=== PATIENT | male | born 1985 | race Caucasian/White ===

== ENCOUNTER 2016-11-26 01:28 | Emergency (ER) | payer MEDICAID ==
[~2016-11-26 01:28] MED LIST: BUSP10TA PO; CIPR0.3S LEFT EAR; HYDR-3516 PO; OLAN15TA PO; OMEP40CA2 PO; PROM25TA5 PO; TAMS0.4C4 PO; TRIH2 PO; ZOFR4TAB PO; [UNRECOGNIZED DRUG - OTHER] PO
[2016-11-26 01:31] VITALS: BP 125/84; PULSE 78; RESP 18; TEMP 97.9; O2SAT 95
[2016-11-26] MEDS ORDERED: SODIUM CHLOR 0.9% 1000 ML INJ 1,000 ML IV ONE (02:00)
[2016-11-26] MEDS ORDERED: ONDANSETRON HCL 4 MG/2 ML VIAL IV ONE (02:00)
--- NOTE | 2016-11-26 02:04 | PD ---
HPI Chief Complaint: Abdominal Pain Time Seen by Provider: 01:52 Travel History International Travel<30 days: No Contact w/Intl Traveler<30days: No Traveled to known affect area: No History of Present Illness HPI The patient is 31 year old male who presents to the [facility] emergency department with a history of abdominal pain in the left upper quadrant of the abdomen associated with bloating that began this evening. He reports that he had nausea and vomiting 1. He reports that he's had one loose stool that is dark brown in color. He denies having any blood or mucus in his stool. He reports that the symptoms are similar to prior episodes of his gastritis. He reports that he recently established with a new primary care doctor that he cannot recall the name of. He reports that he did not have his omeprazole or Zofran continued. The patient denies taking anything for acid reflux or esophagitis or gastritis at this time. The patient denies any recent fevers, cough, congestion, neck pain, chest pain, shortness of breath, urinary symptoms , or neurologic symptoms. [facility] Past Medical History Narrative Medical The patient's past medical history is significant for schizoaffective disorder, esophagitis, gastritis, asthma, tobacco abuse. 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 ) Diabetes: No Diminished Hearing: No Endocrine: No Gastrointestinal Disorders: No GERD: Yes Genitourinary: No Headaches: No Hepatitis: No Hiatal Hernia: No Heparin Induced Thrombocytopen: No Hypertension: Yes Immune Disorder: No Implanted Vascular Access Dvce: No Kidney Stones: No Musculoskeletal: No Neurologic: No Psychiatric: Yes (BIPOLAR, PTSD, SCHIZOPHRENIA) Reproductive: No Immunizations Current: Yes Migraines: No Myocardial Infarction: No Renal Failure: No Schizophrenia: Yes Seizures: No Sickle Cell Disease: No Sleep Apnea: No Thyroid Disease: No Triglycerides - High: No Ulcer: No Past Surgical History Narrative Surgical The patient's past surgical history is reportedly none. He has undergone endoscopy and colonoscopy previously. Abdominal Surgery: Yes ("TUMOR REMOVED FROM LOWER STOMACH") Appendectomy: No Cardiac Surgery: No Cholecystectomy: No Ear Surgery: No Endocrine Surgery: No Eye Surgery: No Genitourinary Surgery: No Gynecologic Surgery: No Neurologic Surgery: No Oral Surgery: No Pacemaker: No Thoracic Surgery: No Other Surgery: Yes (COLONSCOPY-2014) Social History Alcohol Use: No Tobacco Use: Yes (RARE ) Substance Use: No Allergies-Medications (Allergen,Severity, Reaction): Coded Allergies: Haldol (Verified Allergy, Severe, Anaphylaxis, 11/26/16) Seroquel (Verified Allergy, Severe, Anaphylaxis, 11/26/16) Reported Meds & Prescriptions Reported Meds & Active Scripts Active Omeprazole 40 Mg Cap 40 Mg PO DAILY Zofran (Ondansetron HCl) 4 Mg Tab 4 Mg PO Q6HR PRN Ciprodex Otic Drops (Ciprofloxacin-Dexamethasone Otic Drops) 0.3-0.1% Susp 4 Drop LEFT EAR BID Phenergan (Promethazine HCl) 25 Mg Tab 25 Mg PO Q6H PRN Reported Tamsulosin (Tamsulosin HCl) 0.4 Mg Cap 0.4 Mg PO HS [prephenazine] 8 Mg PO BID Buspirone (Buspirone HCl) 10 Mg Tab 10 Mg PO TID Trihexyphenidyl (Trihexyphenidyl HCl) 2 Mg Tab 2 Mg PO BID Olanzapine 15 Mg Tab 15 Mg PO DAILY Hydrocodone-Acetaminophen 5-325 mg Tab 1 Tab PO Q6H PRN Review of Systems Except as stated in HPI: all other systems reviewed are Neg General / Constitutional: No: Fever Eyes: No: Visual changes HENT: No: Headaches Cardiovascular: No: Chest Pain or Discomfort Respiratory: No: Shortness of Breath Gastrointestinal: Positive: Nausea, Vomiting, Diarrhea, Abdominal Pain, Changes in Bowel Habits, Indigestion, No: Constipation, Loss of Appetite Genitourinary: No: Dysuria Musculoskeletal: No: Pain Skin: No Rash Neurologic: No: Weakness Psychiatric: No: Depression Endocrine: No: Polydipsia Hematologic/Lymphatic: No: Easy Bruising Physical Exam Narrative General: The patient is a well-developed well-nourished male in no acute distress. Head and Neck exam: Head is normocephalic atraumatic. Eyes: EOMI, pupils are equal round and reactive to light. Nose: Midline septum with pink mucous membranes Mouth: Dentition unremarkable. Moist mucus membranes. Posterior oropharynx is not erythematous. No tonsillar hypertrophy. Uvula midline. Airway patent. Neck: No palpable lymphadenopathy. No nuchal rigidity. No thyromegaly. Cardiovascular: Regular rate and rhythm without murmurs, gallops, or rubs. Lungs: Clear to auscultation bilaterally. No wheezes, rhonchi, or rales. Abdomen: Soft, with tenderness on deep palpation of the left upper quadrant of the abdomen, no other tenderness on palpation of the other quadrants of the abdomen. No guarding, rebound, or rigidity. The patient has normal bowel sounds are audible. The patient has no tenderness on palpation of McBurney's point. The patient has a negative Egan sign. Extremities: No clubbing, cyanosis, or edema. No calf tenderness on palpation. Back: No spinous process tenderness to palpation. No costovertebral angle tenderness to palpation. Neurologic Exam: Grossly nonfocal. Skin Exam: No rash noted. Intact skin that is warm and dry. Data Data Last Documented VS Vital Signs Date Time Temp Pulse Resp B/P Pulse Ox O2 Delivery O2 Flow Rate FiO2 11/26/16 01:33 18 11/26/16 01:31 97.9 78 125/84 95 Orders Complete Blood Count With Diff (11/26/16 01:55) Comprehensive Metabolic Panel (11/26/16 01:55) C-Reactive Protein (Crp) (11/26/16 01:55) Lipase (11/26/16 01:55) Urinalysis - C+S If Indicated (11/26/16 01:55) Abdomen, Flat & Upright (11/26/16 01:55) Iv Access Insert/Monitor (11/26/16 01:55) Ecg Monitoring (11/26/16 01:55) Oximetry (11/26/16 01:55) Sodium Chlor 0.9% 1000 Ml Inj (Ns 1000 M (11/26/16 02:00) Ondansetron Inj (Zofran Inj) (11/26/16 02:00) Pantoprazole Inj (Protonix Inj) (11/26/16 03:45) Acetaminophen (Tylenol) (11/26/16 03:45) Labs Laboratory Tests Test 11/26/16 02:10 White Blood Count 11.1 TH/MM3 Red Blood Count 5.29 MIL/MM3 Hemoglobin 15.4 GM/DL Hematocrit 48.4 % Mean Corpuscular Volume 91.5 FL Mean Corpuscular Hemoglobin 29.1 PG Mean Corpuscular Hemoglobin 31.8 % Concent Red Cell Distribution Width 14.2 % Platelet Count 252 TH/MM3 Mean Platelet Volume 8.2 FL Neutrophils (%) (Auto) 48.0 % Lymphocytes (%) (Auto) 40.8 % Monocytes (%) (Auto) 7.4 % Eosinophils (%) (Auto) 3.2 % Basophils (%) (Auto) 0.6 % Neutrophils # (Auto) 5.3 TH/MM3 Lymphocytes # (Auto) 4.5 TH/MM3 Monocytes # (Auto) 0.8 TH/MM3 Eosinophils # (Auto) 0.4 TH/MM3 Basophils # (Auto) 0.1 TH/MM3 CBC Comment DIFF FINAL Differential Comment Urine Color LIGHT-YELLOW Urine Turbidity CLEAR Urine pH 7.5 Urine Specific [place] 1.006 Urine Protein NEG mg/dL Urine Glucose (UA) NEG mg/dL Urine Ketones NEG mg/dL Urine Occult Blood NEG Urine Nitrite NEG Urine Bilirubin NEG Urine Urobilinogen LESS THAN 2.0 MG/DL Urine Leukocyte Esterase NEG Urine WBC LESS THAN 1 /hpf Microscopic Urinalysis Comment CULT NOT INDICATED Sodium Level 141 MEQ/L Potassium Level 4.3 MEQ/L Chloride Level 108 MEQ/L Carbon Dioxide Level 25.5 MEQ/L Anion Gap 8 MEQ/L Blood Urea Nitrogen 11 MG/DL Creatinine 0.95 MG/DL Estimat Glomerular Filtration 92 ML/MIN Rate Random Glucose 83 MG/DL Calcium Level 8.8 MG/DL Total Bilirubin 0.3 MG/DL Aspartate Amino Transf 20 U/L (AST/SGOT) Alanine Aminotransferase 28 U/L (ALT/SGPT) Alkaline Phosphatase 77 U/L C-Reactive Protein LESS THAN 0.29 MG/DL Total Protein 6.9 GM/DL Albumin 3.5 GM/DL Lipase 65 U/L [facility] Medical Decision Making Medical Screen Exam Complete: Yes Emergency Medical Condition: Yes Medical Record Reviewed: Yes Differential Diagnosis Gastritis, versus esophagitis, versus gastroenteritis, versus electrolyte abnormality, versus viral syndrome Narrative Course During the course of the patients emergency department visit, the patients history, examination, and differential diagnosis were reviewed with the patient. The patient had IV access obtained and blood work sent for analysis. The patient's was on a cardiac rehabilitation specialist with oximetry and blood pressure monitoring. The patient was provided normal saline 1 L IV fluid bolus, Zofran 4 mg IV, Protonix 40 mg IV, Tylenol 650 by mouth times 1 for pain. Patients laboratory studies were reviewed and remarkable for a white count of 11.1, hemoglobin 15.4, platelets 252 with a normal differential. CMP is remarkable for chloride of 108, lipase 65, C-reactive protein less than 0.29. Urinalysis is unremarkable. Radiology studies were reviewed and remarkable for an abdominal flat and upright that is unremarkable. I suspect that the patient's recurrence of symptoms is related to being out of the omeprazole that he was previously on. The patient will be discharged home with a prescription for omeprazole and Zofran. The patient is resting comfortably and feels better, is alert and in no distress. The patients results and examination findings were discussed with the patient. The repeat examination is unremarkable and benign. The history, exam, diagnostic testing, and current condition do not suggest any significant pathology to warrant further testing, continued ED treatment, admission, or surgical evaluation at this point. The vital signs have been stable. The patient does not have uncontrollable pain, intractable vomiting, or other significant symptoms. The patient's condition is stable and appropriate for discharge. The patient will pursue further outpatient evaluation with a primary care physician or other designated or consulting physician as indicated in the discharge instructions. The patient expressed understanding and was agreeable with this plan. Diagnosis Primary Impression: Abdominal pain Qualified Code: R10.12 - Left upper quadrant pain Additional Impression: Vomiting and diarrhea Referrals: Primary Care Physician Patient Instructions: Abdominal Pain (ED), Acute Diarrhea (ED), Acute Nausea and Vomiting (ED), General Instructions Med/Other Pt SpecificInfo: Prescription(s) given Scripts Omeprazole 40 Mg Cap40 Mg PO DAILY #30 CAP Ref 0 Prov:Sil Jones MD 11/26/16 Ondansetron (Zofran)4 Mg Tab4 Mg PO Q6HR PRN (NAUSEA OR VOMITING) #7 TAB Ref 0 Prov:Sli Jones MD 11/26/16 Disposition: 01 DISCHARGE HOME Condition: Stable Sil Jones MD Nov 26, 2016 02:04
[2016-11-26 02:33] LABS: BLOOD, URINE NEG (NEG); GLUCOSE,URINE NEG (NEG); KETONE, URINE NEG (NEG); NITRITE,URINE NEG (NEG); PH, URINE 7.5 (5.0-8.5); URINE COLOR LIGHT-YELLOW (YELLW/STRAW)
[2016-11-26 02:35] LABS: COMMENT (UR) CULT NOT INDICATED; CULTURE IF INDICATED CULT NOT INDICATED
[2016-11-26 02:38] LABS: AUTOMATED NEUTROPHIL # 5.3 TH/MM3 (1.8-7.7); BASOPHIL # 0.1 TH/MM3 (0-0.2); BASOPHIL % 0.6 % (0.0-2.0); EOSINOPHIL # 0.4 TH/MM3 (0-0.4); EOSINOPHIL % 3.2 % (0.0-4.0); HEMATOCRIT 48.4 % (39.0-51.0); HEMO FLAGS DIFF FINAL; LYMPH % 40.8 % (9.0-44.0); LYMPHOCYTE # 4.5 TH/MM3 (1.0-4.8); MEAN CELL VOLUME 91.5 FL (80.0-100.0); MEAN CORPUSCULAR HEMOGLOBIN 29.1 PG (27.0-34.0); MEAN CORPUSCULAR HGB CONC 31.8 % (32.0-36.0); MONO % 7.4 % (0.0-8.0); PLATELET COUNT 252 TH/MM3 (150-450); RED BLOOD COUNT 5.29 MIL/MM3 (4.50-5.90); RED CELL DISTRIBUTION WIDTH 14.2 % (11.6-17.2); WHITE BLOOD COUNT 11.1 TH/MM3 (4.0-11.0)
[2016-11-26 02:51] LABS: ALKALINE PHOSPHATASE 77 U/L (45-117); TOTAL BILIRUBIN ADULT 0.3 MG/DL (0.2-1.0)
[2016-11-26 02:52] LABS: ALT (GPT) 28 U/L (12-78); ANION GAP 8 MEQ/L (5-15); AST (GOT) 20 U/L (15-37); BICARBONATE 25.5 MEQ/L (21.0-32.0); BLOOD UREA NITROGEN 11 MG/DL (7-18); CHLORIDE 108 MEQ/L (98-107); GLOMERULAR FILTRATION RATE 92 ML/MIN (>89); SODIUM (NA) 141 MEQ/L (136-145)
--- NOTE | 2016-11-26 02:52 | RADRPT ---
EXAM DATE/TIME: 11/26/2016 02:20 [place] COMPARISON: ABDOMEN FLAT & UPRIGHT, October 15, 2016, 3:38. INDICATIONS : Abdominal pain. MEDICAL HISTORY : None. SURGICAL HISTORY : None. ENCOUNTER: Initial ACUITY: 1 day PAIN SCORE: 4/10 LOCATION: Left lower quadrant abdomen. FINDINGS: Supine and upright views of the abdomen were performed. The abdominal bowel gas pattern is normal. No air fluid levels are seen. No abnormal masses, calcifications, or organomegaly is seen. The visu alized lower lungs are clear. No evidence of free intraperitoneal gas. The osseous structures are u nremarkable. CONCLUSION: Normal examination. Kofi Woodard Jr., MD on November 26, 2016 at 2:51 Board Certified Radiologist. This report was verified electronically.
[2016-11-26 02:53] LABS: POTASSIUM 4.3 MEQ/L (3.5-5.1)
[2016-11-26] MEDS ORDERED: OMEP40CA2 PO (03:37)
[2016-11-26] MEDS ORDERED: ZOFR4TAB PO (03:37)
[2016-11-26] MEDS ORDERED: PANTOPRAZOLE SODIUM 40 MG VIAL IV PUSH ONE (03:45)
[2016-11-26] MEDS ORDERED: ACETAMINOPHEN 325 MG TAB PO ONE (03:45)
[2016-12-26] MEDS ORDERED: ALBU6.7H INH (08:03)
== END 2016-11-26 04:46 | disposition home or self-care (01) ==
LOC: NEPE 01:28
DX: R10.12 Left upper quadrant pain (principal); R11.2 Nausea with vomiting, unspecified; R19.7 Diarrhea, unspecified; I10 Essential (primary) hypertension; J45.909 Unspecified asthma, uncomplicated
CPT/HCPCS: 74020; 80053; 81001; 83690; 85025; 86140; 96374; 96375; 99284; C9113; J2405; J7030

== ENCOUNTER 2016-12-02 08:11 | Emergency (ER) | payer MEDICAID ==
[~2016-12-02] VITALS: Ht 177.8 cm; Wt 75.0 kg
[2016-12-02 08:15] VITALS: BP 123/84; PULSE 79; RESP 16; TEMP 97.8; O2SAT 94
[2016-12-02] MEDS ORDERED: BUSP15TA PO (08:20)
[2016-12-02] MEDS ORDERED: ZYPR10TA PO (08:20)
--- NOTE | 2016-12-02 08:28 | PD ---
HPI Chief Complaint: Back/ Neck Pain or Injury Time Seen by Provider: 08:25 Travel History International Travel<30 days: No Contact w/Intl Traveler<30days: No Traveled to known affect area: No History of Present Illness HPI Patient comes in complaining of low back pain that he awoke with this morning around 5 AM. Patient describes pain as achy like in nature. Patient reports that he took 2 Tylenol with little improvement of symptoms. Pain is worse with certain movement. Patient denies any known injury. Patient denies any fevers, loss or change of bowel or bladder, abdominal pain, or IV drug use. Patient is uncertain of this pain is similar to his previous back pain or not. 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 ) Diabetes: No Diminished Hearing: No Endocrine: No Gastrointestinal Disorders: No GERD: Yes Genitourinary: No Headaches: No Hepatitis: No Hiatal Hernia: No Heparin Induced Thrombocytopen: No Hypertension: Yes Immune Disorder: No Implanted Vascular Access Dvce: No Kidney Stones: No Musculoskeletal: No Neurologic: No Psychiatric: Yes (PTSD) Reproductive: No Immunizations Current: Yes Migraines: No Myocardial Infarction: No Renal Failure: No Schizophrenia: Yes Seizures: No Sickle Cell Disease: No Sleep Apnea: No Thyroid Disease: No Triglycerides - High: No Ulcer: No Tetanus Vaccination: < 5 Years Influenza Vaccination: Yes Past Surgical History Abdominal Surgery: Yes ("TUMOR REMOVED FROM LOWER STOMACH") Appendectomy: No Cardiac Surgery: No Cholecystectomy: No Ear Surgery: No Endocrine Surgery: No Eye Surgery: No Genitourinary Surgery: No Gynecologic Surgery: No Neurologic Surgery: No Oral Surgery: No Pacemaker: No Thoracic Surgery: No Other Surgery: Yes (COLONSCOPY-2013) Social History Alcohol Use: No Tobacco Use: Yes (11/26 PPD) Substance Use: No Allergies-Medications (Allergen,Severity, Reaction): Coded Allergies: Haldol (Verified Allergy, Severe, Anaphylaxis, 12/02/16) Seroquel (Verified Allergy, Severe, Anaphylaxis, 12/02/16) Reported Meds & Prescriptions Reported Meds & Active Scripts Active Naprosyn (Naproxen) 500 Mg Tab 500 Mg PO Q12HR PRN Robaxin (Methocarbamol) 750 Mg Tab 750 Mg PO Q8HR PRN Reported Buspirone (Buspirone HCl) 15 Mg Tab 15 Mg PO HS Zyprexa (Olanzapine) 10 Mg Tab 30 Mg PO HS Review of Systems Except as stated in HPI: all other systems reviewed are Neg Physical Exam Narrative GENERAL: Well-developed, well nourished, in no acute distress, and non-ill appearing. SKIN: Warm and dry. HEAD: Atraumatic. Normocephalic. EYES: Pupils equal and round. EOMI. No scleral icterus. No injection or drainage. ENT: No nasal bleeding or discharge. Mucous membranes pink and moist. NECK: Trachea midline. Supple. No nuclear rigidity. RESPIRATORY: No accessory muscle use. No respiratory distress. GASTROINTESTINAL: Abdomen soft, non-tender, nondistended. Hepatic and splenic margins not palpable. No pulsatile mass. No CVA tenderness. MUSCULOSKELETAL: No obvious deformities. No clubbing. No cyanosis. No edema. Full range of motion. Patient is able to ambulate normally and bear full weight. Respiratory prescription a midline of the lumbar thoracic spine. Straight leg test is negative bilaterally. NEUROLOGICAL: Awake and alert. No obvious cranial nerve deficits. Motor grossly within normal limits. Normal speech. PSYCHIATRIC: Appropriate mood and affect; insight and judgment normal. Data Data Last Documented VS Vital Signs Date Time Temp Pulse Resp B/P Pulse Ox O2 Delivery O2 Flow Rate FiO2 12/02/16 08:15 97.8 79 16 123/84 94 Room Air Orders Urinalysis - C+S If Indicated (12/02/16 08:20) Labs Laboratory Tests Test 12/02/16 08:20 Urine Color YELLOW Urine Turbidity CLEAR Urine pH 6.0 Urine Specific [place] 1.016 Urine Protein NEG mg/dL Urine Glucose (UA) NEG mg/dL Urine Ketones NEG mg/dL Urine Occult Blood NEG Urine Nitrite NEG Urine Bilirubin NEG Urine Urobilinogen LESS THAN 2.0 MG/DL Urine Leukocyte Esterase NEG Urine RBC LESS THAN 1 /hpf Urine WBC 1 /hpf Urine Squamous Epithelial <1 /hpf Cells Urine Mucus FEW /lpf Microscopic Urinalysis Comment CULT NOT INDICATED MDM Medical Decision Making Medical Screen Exam Complete: Yes Emergency Medical Condition: Yes Differential Diagnosis Petechiae, renal calculi, acute on chronic back pain, low back strain, other Narrative Course The patient presented complaining of back pain. There was no history of recent fall or trauma. There was no evidence to support genitourinary etiology. There is also no evidence to suggest vascular pathology such as AAA dissection. No fevers or other evidence to suspect infectious processes, abscess, osteomyelitis etc. The patients neurological exam is normal with normal motor and sensory. There is no saddle paresthesias reported and no bowel or bladder incontinence or retention. I suspect the pain is mechanical in nature. Clinical suspicion, plan of care and management was discussed with the patient. The patient was instructed to follow up with their health care provider. The patient was also instructed to return if the pain worsened, changed, or developed weakness or bowel or bladder trouble. The patient agreed with plan. Patient in no obvious distress upon re-evaluation. All pertinent laboratory result(s) discussed with patient. Patient was asked if they wanted to speak to my attending, which the patient did not wish to do at this time. Any questions/ concerns in reference to patient diagnosis/condition discussed and clarified prior to patient's discharge. Reinforced sheer importance of close follow up with patient's primary physician or primary care clinic. Instructed patient to return to ED immediately, if symptoms return/worsen. Pt showed understanding of above instructions. Further instructions and recommendations were detailed in discharge paperwork. Pt ambulated without difficulty out of ED at discharge. Diagnosis Primary Impression: Back pain Qualified Code: M54.5 - Left-sided low back pain without sciatica, unspecified chronicity Patient Instructions: Back Pain (ED), General Instructions Additional Instructions: Follow-up with your primary care physician one to 2 days for reevaluation. Take all medication as prescribed. Return to the emergency department if symptoms get worse. Med/Other Pt SpecificInfo: Prescription(s) given Scripts Naproxen (Naprosyn)500 Mg [id number] Mg PO Q12HR PRN (PAIN SCALE 1 TO 10) #10 TAB Ref 0 Prov:Ely Thapa MD 12/02/16 Methocarbamol (Robaxin)750 Mg [id number] Mg PO Q8HR PRN (MUSCLE PAIN) #12 TAB Ref 0 Prov:Ely Thapa MD 12/02/16 Disposition: 01 DISCHARGE HOME Condition: Stable Gume Baca Dec 02, 2016 08:27
[2016-12-02 08:52] LABS: BLOOD, URINE NEG (NEG); COMMENT (UR) CULT NOT INDICATED; CULTURE IF INDICATED CULT NOT INDICATED; GLUCOSE,URINE NEG (NEG); KETONE, URINE NEG (NEG); MUCUS URINE FEW /lpf (OCC); NITRITE,URINE NEG (NEG); SQUAMOUS EPITHELIAL CELL URINE <1 /hpf (0-5); URINE COLOR YELLOW (YELLW/STRAW)
[2016-12-02] MEDS ORDERED: ROBA750T PO (08:58)
[2016-12-02] MEDS ORDERED: NAPR500 PO (08:58)
[2016-12-26] MEDS ORDERED: ALBU6.7H INH (08:03)
== END 2016-12-02 09:00 | disposition home or self-care (01) ==
LOC: NEPB 08:11
DX: M54.5 Low back pain (principal); I10 Essential (primary) hypertension; D64.9 Anemia, unspecified
CPT/HCPCS: 81001; 99283

== ENCOUNTER 2016-12-13 06:26 | Emergency (ER) | payer MEDICAID ==
[~2016-12-13] VITALS: Ht 175.3 cm; Wt 75.0 kg
[~2016-12-13 06:26] MED LIST changes: -BUSP10TA PO; +BUSP15TA PO; -CIPR0.3S LEFT EAR; -HYDR-3516 PO; +NAPR500 PO; -OLAN15TA PO; -OMEP40CA2 PO; -PROM25TA5 PO; +ROBA750T PO; -TAMS0.4C4 PO; -TRIH2 PO; -ZOFR4TAB PO; +ZYPR10TA PO; -[UNRECOGNIZED DRUG - OTHER] PO
[2016-12-13 06:30] VITALS: BP 138/93; PULSE 76; RESP 18; TEMP 98; O2SAT 94
[2016-12-13] MEDS ORDERED: SODIUM CHLOR 0.9% 1000 ML INJ 1,000 ML IV SCH (07:04)
--- NOTE | 2016-12-13 07:04 | PD ---
HPI Chief Complaint: Abdominal Pain Time Seen by Provider: 07:04 Travel History International Travel<30 days: No Contact w/Intl Traveler<30days: No Traveled to known affect area: No History of Present Illness HPI 31-year-old male came to the emergency room with history of abdominal pain and some rash on his feet. Patient has history of schizophrenia and has been in the emergency room multiple times. He does have a primary care. He says he's been having some diarrhea as well. Vital signs are completely stable. [facility] Past Medical History Narrative Medical List of his past medical history as reviewed from the nursing note. 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 ) Diabetes: No Diminished Hearing: No Endocrine: No Gastrointestinal Disorders: No GERD: Yes Genitourinary: No Headaches: No Hepatitis: No Hiatal Hernia: No Heparin Induced Thrombocytopen: No Hypertension: Yes Immune Disorder: No Implanted Vascular Access Dvce: No Kidney Stones: No Musculoskeletal: No Neurologic: No Psychiatric: Yes (PTSD) Reproductive: No Immunizations Current: Yes Migraines: No Myocardial Infarction: No Renal Failure: No Schizophrenia: Yes Seizures: No Sickle Cell Disease: No Sleep Apnea: No Thyroid Disease: No Triglycerides - High: No Ulcer: No Past Surgical History Abdominal Surgery: Yes ("TUMOR REMOVED FROM LOWER STOMACH") Appendectomy: No Cardiac Surgery: No Cholecystectomy: No Ear Surgery: No Endocrine Surgery: No Eye Surgery: No Genitourinary Surgery: No Gynecologic Surgery: No Neurologic Surgery: No Oral Surgery: No Pacemaker: No Thoracic Surgery: No Other Surgery: Yes (COLONSCOPY-2013) Social History Alcohol Use: No Tobacco Use: Yes (2 PPD) Substance Use: No Allergies-Medications (Allergen,Severity, Reaction): Coded Allergies: Haldol (Verified Allergy, Severe, Anaphylaxis, 12/13/16) Seroquel (Verified Allergy, Severe, Anaphylaxis, 12/13/16) Comments List of his allergies reviewed from the nursing note. Reported Meds & Prescriptions Reported Meds & Active Scripts Active Reported Buspirone (Buspirone HCl) 15 Mg Tab 30 Mg PO HS Zyprexa (Olanzapine) 10 Mg Tab 30 Mg PO HS Narrative Medication List of his home medications reviewed from the nursing note. Review of Systems Except as stated in HPI: all other systems reviewed are Neg Physical Exam Narrative GENERAL: Awake, alert, disheveled, poor personal hygiene, anxious but no obvious distress SKIN: Warm and dry. HEAD: Atraumatic. Normocephalic. EYES: Pupils equal and round. No scleral icterus. No injection or drainage. ENT: No nasal bleeding or discharge. Mucous membranes pink and moist. Poor dental hygiene. NECK: Trachea midline. No JVD. CARDIOVASCULAR: Regular rate and rhythm. No murmur appreciated. RESPIRATORY: No accessory muscle use. Clear to auscultation. Breath sounds equal bilaterally. GASTROINTESTINAL: Abdomen soft, non-tender, nondistended. Hepatic and splenic margins not palpable. MUSCULOSKELETAL: No obvious deformities. No clubbing. No cyanosis. No edema. NEUROLOGICAL: Awake and alert. No obvious cranial nerve deficits. Motor grossly within normal limits. Normal speech. PSYCHIATRIC: Appropriate mood and affect; insight and judgment normal. Data Data Last Documented VS Vital Signs Date Time Temp Pulse Resp B/P Pulse Ox O2 Delivery O2 Flow Rate FiO2 12/13/16 06:30 98.0 76 18 138/93 94 Orders Complete Blood Count With Diff (12/13/16 07:04) Comprehensive Metabolic Panel (12/13/16 07:04) Lipase (12/13/16 07:04) Prothrombin Time / Inr (Pt) (12/13/16 07:04) Urinalysis - C+S If Indicated (12/13/16 07:04) Iv Access Insert/Monitor (12/13/16 07:04) Ecg Monitoring (12/13/16 07:04) Oximetry (12/13/16 07:04) Sodium Chlor 0.9% 1000 Ml Inj (Ns 1000 M (12/13/16 07:04) Sodium Chloride 0.9% Flush (Ns Flush) (12/13/16 07:15) Labs Laboratory Tests Test 12/13/16 12/13/16 07:14 07:20 White Blood Count 11.9 TH/MM3 Red Blood Count 5.43 MIL/MM3 Hemoglobin 17.0 GM/DL Hematocrit 48.9 % Mean Corpuscular Volume 90.0 FL Mean Corpuscular Hemoglobin 31.3 PG Mean Corpuscular Hemoglobin 34.7 % Concent Red Cell Distribution Width 14.1 % Platelet Count 220 TH/MM3 Mean Platelet Volume 8.6 FL Neutrophils (%) (Auto) 53.5 % Lymphocytes (%) (Auto) 35.6 % Monocytes (%) (Auto) 6.9 % Eosinophils (%) (Auto) 3.3 % Basophils (%) (Auto) 0.7 % Neutrophils # (Auto) 6.4 TH/MM3 Lymphocytes # (Auto) 4.2 TH/MM3 Monocytes # (Auto) 0.8 TH/MM3 Eosinophils # (Auto) 0.4 TH/MM3 Basophils # (Auto) 0.1 TH/MM3 CBC Comment DIFF FINAL Differential Comment Prothrombin Time 10.7 SEC Prothromb Time International 1.0 RATIO Ratio Sodium Level 141 MEQ/L Potassium Level 4.0 MEQ/L Chloride Level 109 MEQ/L Carbon Dioxide Level 25.9 MEQ/L Anion Gap 6 MEQ/L Blood Urea Nitrogen 11 MG/DL Creatinine 0.84 MG/DL Estimat Glomerular Filtration 106 ML/MIN Rate Random Glucose 94 MG/DL Calcium Level 8.5 MG/DL Total Bilirubin 0.4 MG/DL Aspartate Amino Transf 30 U/L (AST/SGOT) Alanine Aminotransferase 68 U/L (ALT/SGPT) Alkaline Phosphatase 72 U/L Total Protein 6.7 GM/DL Albumin 3.7 GM/DL Lipase 73 U/L Urine Color LIGHT-YELLOW Urine Turbidity CLEAR Urine pH 7.0 Urine Specific [place] 1.003 Urine Protein NEG mg/dL Urine Glucose (UA) NEG mg/dL Urine Ketones NEG mg/dL Urine Occult Blood NEG Urine Nitrite NEG Urine Bilirubin NEG Urine Urobilinogen LESS THAN 2.0 MG/DL Urine Leukocyte Esterase NEG Urine RBC LESS THAN 1 /hpf Urine WBC 1 /hpf Urine Mucus FEW /lpf Microscopic Urinalysis Comment CULT NOT INDICATED MDM Medical Decision Making Medical Screen Exam Complete: Yes Emergency Medical Condition: Yes Medical Record Reviewed: Yes Differential Diagnosis Colitis, abdominal pain NOS Narrative Course 7:38 AM given the fact that vital signs were stable and abdomen was completely benign I do not think a need for subjecting the patient to any radiation for any radiological study. The blood tests are within normal limit I will discharge him home. I'm giving him a fluid bolus. 8:18 AM blood test results of back and within normal limit. I will discharge this patient home. Procedures EKG Prior to Arrival: No Diagnosis Primary Impression: Colitis Additional Impression: Bug bites Qualified Code: W57.XXXA - Bug bites, initial encounter Referrals: Primary Care Physician 2 days Additional Instructions: Please return to the ER if the condition worsens or any other new concerns. Eat light food-like soup, Jell-O, broth, toast, rice etc. Pay attention to personal hygiene. You can apply calamine lotion which is available over-the- counter and pharmacies on the bug bite till the symptoms subside. Follow-up with your primary care. Med/Other Pt SpecificInfo: No Change to Meds Disposition: 01 DISCHARGE HOME Condition: Stable Janet Negron MD Dec 13, 2016 07:04
[2016-12-13] MEDS ORDERED: SODIUM CHLORIDE 0.9% FLUSH 5 ML FLUSH IVF PRN (07:15)
[2016-12-13 07:28] LABS: AUTOMATED NEUTROPHIL # 6.4 TH/MM3 (1.8-7.7); BASOPHIL # 0.1 TH/MM3 (0-0.2); BASOPHIL % 0.7 % (0.0-2.0); EOSINOPHIL # 0.4 TH/MM3 (0-0.4); EOSINOPHIL % 3.3 % (0.0-4.0); HEMATOCRIT 48.9 % (39.0-51.0); HEMO FLAGS DIFF FINAL; LYMPH % 35.6 % (9.0-44.0); LYMPHOCYTE # 4.2 TH/MM3 (1.0-4.8); MEAN CORPUSCULAR HEMOGLOBIN 31.3 PG (27.0-34.0); MEAN CORPUSCULAR HGB CONC 34.7 % (32.0-36.0); MONO % 6.9 % (0.0-8.0); NEUT % 53.5 % (16.0-70.0); PLATELET COUNT 220 TH/MM3 (150-450); RED BLOOD COUNT 5.43 MIL/MM3 (4.50-5.90); RED CELL DISTRIBUTION WIDTH 14.1 % (11.6-17.2); WHITE BLOOD COUNT 11.9 TH/MM3 (4.0-11.0)
[2016-12-13 07:29] LABS: BLOOD, URINE NEG (NEG); COMMENT (UR) CULT NOT INDICATED; CULTURE IF INDICATED CULT NOT INDICATED; GLUCOSE,URINE NEG (NEG); KETONE, URINE NEG (NEG); MUCUS URINE FEW /lpf (OCC); NITRITE,URINE NEG (NEG); URINE COLOR LIGHT-YELLOW (YELLW/STRAW)
[2016-12-13 07:37] LABS: PROTHROMBIN TIME - PATIENT 10.7 SEC (9.8-11.6)
[2016-12-13 07:55] LABS: ALKALINE PHOSPHATASE 72 U/L (45-117); TOTAL BILIRUBIN ADULT 0.4 MG/DL (0.2-1.0)
[2016-12-13 07:59] LABS: ALT (GPT) 68 U/L (12-78); ANION GAP 6 MEQ/L (5-15); AST (GOT) 30 U/L (15-37); BICARBONATE 25.9 MEQ/L (21.0-32.0); BLOOD UREA NITROGEN 11 MG/DL (7-18); CHLORIDE 109 MEQ/L (98-107); GLOMERULAR FILTRATION RATE 106 ML/MIN (>89); SODIUM (NA) 141 MEQ/L (136-145)
[2016-12-26] MEDS ORDERED: ALBU6.7H INH (08:03)
== END 2016-12-13 10:01 | disposition home or self-care (01) ==
LOC: NEPE 06:26
DX: K52.9 Noninfective gastroenteritis and colitis, unspecified (principal); S90.869A Insect bite (nonvenomous), unspecified foot, initial encounter; D64.9 Anemia, unspecified; I10 Essential (primary) hypertension; F17.210 Nicotine dependence, cigarettes, uncomplicated; W57.XXXA Bitten or stung by nonvenomous insect and other nonvenomous arthropods, initial encounter
CPT/HCPCS: 80053; 81001; 83690; 85025; 85610; 96360; 99284; J7030

== ENCOUNTER 2017-03-23 08:33 | Emergency (ER) | payer MEDICAID ==
[~2017-03-23] VITALS: Ht 175.3 cm; Wt 75.0 kg
[~2017-03-23 08:33] MED LIST changes: +ALBU6.7H INH; -NAPR500 PO; -ROBA750T PO
[2017-03-23 08:50] VITALS: BP 143/80; PULSE 90; RESP 18; TEMP 98.2; O2SAT 98
[2017-03-23 09:00] VITALS: RESP 16; O2SAT 96
[2017-03-23] MEDS ORDERED: DICYCLOMINE HCL 10 MG CAP PO ONE (09:00)
[2017-03-23] MEDS ORDERED: KETOROLAC TROMETHAMINE 30 MG/ML (IVP) VIAL IVP ONE (09:00)
[2017-03-23 09:16] LABS: AUTOMATED NEUTROPHIL # 7.3 TH/MM3 (1.8-7.7); BASOPHIL # 0.1 TH/MM3 (0-0.2); BASOPHIL % 0.8 % (0.0-2.0); EOSINOPHIL # 0.3 TH/MM3 (0-0.4); EOSINOPHIL % 2.5 % (0.0-4.0); HEMATOCRIT 49.8 % (39.0-51.0); HEMO FLAGS DIFF FINAL; LYMPH % 30.8 % (9.0-44.0); LYMPHOCYTE # 3.6 TH/MM3 (1.0-4.8); MEAN CELL VOLUME 91.5 FL (80.0-100.0); MEAN CORPUSCULAR HEMOGLOBIN 31.6 PG (27.0-34.0); MEAN CORPUSCULAR HGB CONC 34.5 % (32.0-36.0); MONO % 4.6 % (0.0-8.0); NEUT % 61.3 % (16.0-70.0); PLATELET COUNT 222 TH/MM3 (150-450); RED BLOOD COUNT 5.45 MIL/MM3 (4.50-5.90); RED CELL DISTRIBUTION WIDTH 15.3 % (11.6-17.2); WHITE BLOOD COUNT 11.8 TH/MM3 (4.0-11.0)
[2017-03-23 09:39] LABS: ANION GAP 8 MEQ/L (5-15); AST (GOT) 13 U/L (15-37); BLOOD UREA NITROGEN 8 MG/DL (7-18); CHLORIDE 108 MEQ/L (98-107); GLOMERULAR FILTRATION RATE 98 ML/MIN (>89); POTASSIUM 3.4 MEQ/L (3.5-5.1); SODIUM (NA) 139 MEQ/L (136-145)
[2017-03-23 09:42] LABS: ALKALINE PHOSPHATASE 67 U/L (45-117); ALT (GPT) 24 U/L (12-78); TOTAL BILIRUBIN ADULT 0.3 MG/DL (0.2-1.0)
--- NOTE | 2017-03-23 09:57 | PD ---
HPI Chief Complaint: Abdominal Pain Time Seen by Provider: 08:40 Travel History International Travel<30 days: No Contact w/Intl Traveler<30days: No Traveled to known affect area: No History of Present Illness HPI The patient is 32 years old. He arrives with sudden onset right lower abdomen pain which radiates to the left lower side. He describes a pressure-like sensation. The pain was severe initially. No nausea vomiting or diarrhea. He reports difficulty with a bowel movement this morning, atypical for him. 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 ) Diabetes: No Diminished Hearing: No Endocrine: No Gastrointestinal Disorders: No GERD: Yes Genitourinary: No Headaches: No Hepatitis: No Hiatal Hernia: No Heparin Induced Thrombocytopen: No Hypertension: Yes Immune Disorder: No Implanted Vascular Access Dvce: No Kidney Stones: No Musculoskeletal: No Neurologic: No Psychiatric: Yes (PTSD) Reproductive: No Immunizations Current: Yes Migraines: No Myocardial Infarction: No Renal Failure: No Schizophrenia: Yes Seizures: No Sickle Cell Disease: No Sleep Apnea: No Thyroid Disease: No Triglycerides - High: No Ulcer: No Past Surgical History Abdominal Surgery: Yes ("TUMOR REMOVED FROM LOWER STOMACH") Appendectomy: No Cardiac Surgery: No Cholecystectomy: No Ear Surgery: No Endocrine Surgery: No Eye Surgery: No Genitourinary Surgery: No Gynecologic Surgery: No Neurologic Surgery: No Oral Surgery: No Pacemaker: No Thoracic Surgery: No Other Surgery: Yes (COLONSCOPY-2013) Social History Alcohol Use: No Tobacco Use: Yes (2 PPD) Substance Use: No Allergies-Medications (Allergen,Severity, Reaction): Coded Allergies: Haldol (Verified Allergy, Severe, Anaphylaxis, 03/23/17) Seroquel (Verified Allergy, Severe, Anaphylaxis, 03/23/17) Reported Meds & Prescriptions Reported Meds & Active Scripts Active Proventil Hfa 6.7 GM Inh (Albuterol Sulfate) 90 Mcg/Act Aer 2 Puff INH Q4-6H PRN Reported Buspirone (Buspirone HCl) 15 Mg Tab 30 Mg PO HS Zyprexa (Olanzapine) 10 Mg Tab 30 Mg PO HS Review of Systems Except as stated in HPI: all other systems reviewed are Neg Physical Exam Narrative GENERAL: 32 yo M, WNWD SKIN: Focused skin assessment warm/dry. HEAD: Atraumatic. Normocephalic. EYES: Pupils equal and round. No scleral icterus. No injection or drainage. ENT: No nasal bleeding or discharge. Mucous membranes pink and moist. NECK: Trachea midline. No JVD. CARDIOVASCULAR: Regular rate and rhythm. No murmur appreciated. RESPIRATORY: No accessory muscle use. Clear to auscultation. Breath sounds equal bilaterally. GASTROINTESTINAL: Soft. Mild diffuse nonspecific tenderness. MUSCULOSKELETAL: No obvious deformities. No clubbing. No cyanosis. No edema. NEUROLOGICAL: Awake and alert. No obvious cranial nerve deficits. Motor grossly within normal limits. Normal speech. PSYCHIATRIC: Appropriate mood and affect; insight and judgment normal. Data Data Last Documented VS Vital Signs Date Time Temp Pulse Resp B/P Pulse Ox O2 Delivery O2 Flow Rate FiO2 03/23/17 09:00 16 96 Room Air 03/23/17 08:50 98.2 90 143/80 Vital signs reviewed Orders Complete Blood Count With Diff (03/23/17 08:51) Comprehensive Metabolic Panel (03/23/17 08:51) Lipase (03/23/17 08:51) Lactic Acid (03/23/17 08:51) Iv Access Insert/Monitor (03/23/17 08:51) Oximetry (03/23/17 08:51) Ketorolac Inj (Toradol Inj) (03/23/17 09:00) Dicyclomine (Bentyl) (03/23/17 09:00) Labs Laboratory Tests Test 03/23/17 09:00 White Blood Count 11.8 TH/MM3 Red Blood Count 5.45 MIL/MM3 Hemoglobin 17.2 GM/DL Hematocrit 49.8 % Mean Corpuscular Volume 91.5 FL Mean Corpuscular Hemoglobin 31.6 PG Mean Corpuscular Hemoglobin 34.5 % Concent Red Cell Distribution Width 15.3 % Platelet Count 222 TH/MM3 Mean Platelet Volume 8.0 FL Neutrophils (%) (Auto) 61.3 % Lymphocytes (%) (Auto) 30.8 % Monocytes (%) (Auto) 4.6 % Eosinophils (%) (Auto) 2.5 % Basophils (%) (Auto) 0.8 % Neutrophils # (Auto) 7.3 TH/MM3 Lymphocytes # (Auto) 3.6 TH/MM3 Monocytes # (Auto) 0.5 TH/MM3 Eosinophils # (Auto) 0.3 TH/MM3 Basophils # (Auto) 0.1 TH/MM3 CBC Comment DIFF FINAL Differential Comment Sodium Level 139 MEQ/L Potassium Level 3.4 MEQ/L Chloride Level 108 MEQ/L Carbon Dioxide Level 23.0 MEQ/L Anion Gap 8 MEQ/L Blood Urea Nitrogen 8 MG/DL Creatinine 0.89 MG/DL Estimat Glomerular Filtration 98 ML/MIN Rate Random Glucose 102 MG/DL Lactic Acid Level 1.2 mmol/L Calcium Level 8.7 MG/DL Total Bilirubin 0.3 MG/DL Aspartate Amino Transf 13 U/L (AST/SGOT) Alanine Aminotransferase 24 U/L (ALT/SGPT) Alkaline Phosphatase 67 U/L Total Protein 6.7 GM/DL Albumin 3.6 GM/DL Lipase 69 U/L [facility] Medical Decision Making Medical Screen Exam Complete: Yes Emergency Medical Condition: Yes Medical Record Reviewed: Yes Differential Diagnosis Constipation, Gastritis, Acute Cholecystitis, Biliary Colic, Pancreatitis, MOLINA , Hepatitis, Bowel Obstruction, Cystitis, Mesenteric Ischemia, AAA, Appendicitis , Renal Stone/Hydronephrosis, GERD, perforated viscous Narrative Course CBC & BMP Diagram 03/23/17 09:00 LA 1.2 LFTs normal Lipase normal Patient has had 5 prior CTs for very similar complaint all of which are been normal. Today's presentation is similar to priors, no emergency, although the exact etiology is unclear. Patient reassessed at 1025AM after Bentyl and Toradol reports mild improvement. He is agreeable with plan for discharge home. Diagnosis Primary Impression: Abdominal pain Qualified Code: R10.30 - Lower abdominal pain Referrals: Primary Care Physician 2 days Additional Instructions: You have a choice when it comes to health care, and we are glad that you chose [facility] Hopefully, we have met your expectations on today's visit. You are welcome to return to [facility] at any time, as we are committed to meeting the health care needs of our community. Med/Other Pt SpecificInfo: Prescription(s) given Scripts Dicyclomine (Bentyl)10 Mg Cap10 Mg PO TID PRN (Bowel Management) #10 CAP Ref 0 Prov:Michael Brown MD 03/23/17 Disposition: 01 DISCHARGE HOME Condition: Stable Michael Brown MD Mar 23, 2017 09:57
[2017-03-23] MEDS ORDERED: DICY10 PO (10:21)
[2017-03-23] MEDS ORDERED: ACETAMINOPHEN/HYDROcodone 325 MG/5 MG TAB PO ONE (10:30)
[2017-03-23 11:00] VITALS: BP 121/90; PULSE 98; RESP 16; O2SAT 98
== END 2017-03-23 11:35 | disposition home or self-care (01) ==
LOC: NEPC 08:33
DX: R10.30 Lower abdominal pain, unspecified (principal); I10 Essential (primary) hypertension; F17.200 Nicotine dependence, unspecified, uncomplicated; Z87.19 Personal history of other diseases of the digestive system; Z86.59 Personal history of other mental and behavioral disorders; Z86.2 Personal history of diseases of the blood and blood-forming organs and certain disorders involving the immune mechanism; Z87.09 Personal history of other diseases of the respiratory system; Z85.038 Personal history of other malignant neoplasm of large intestine
CPT/HCPCS: 80053; 83605; 83690; 85025; 96374; 99284; J1885

== ENCOUNTER 2017-04-05 05:52 | Emergency (ER) | payer MEDICAID ==
[~2017-04-05 05:52] MED LIST changes: +DICY10 PO
--- NOTE | 2017-04-05 06:03 | PD ---
HPI Chief Complaint: left arm pain Time Seen by Provider: 05:58 Travel History International Travel<30 days: No Contact w/Intl Traveler<30days: No Traveled to known affect area: No History of Present Illness HPI 32-year-old male complains of left arm pain. Patient states that he fell out of bed this morning. Patient denies any loss of consciousness. Patient denies any headache or neck pain. Patient complaining the sharp pain localized to left forearm extending from the left elbow to left wrist. Patient denies any pain radiation. Patient denies any focal weakness or numbness of extremity. Patient denies any chest pain or shortness of breath. Patient denies abdominal pain. Patient denies any other injury. On a scale of 1-10 the pain is a 7. 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 ) Diabetes: No Diminished Hearing: No Endocrine: No Gastrointestinal Disorders: No GERD: Yes Genitourinary: No Headaches: No Hepatitis: No Hiatal Hernia: No Heparin Induced Thrombocytopen: No Hypertension: Yes Immune Disorder: No Implanted Vascular Access Dvce: No Kidney Stones: No Musculoskeletal: No Neurologic: No Psychiatric: Yes (PTSD) Reproductive: No Immunizations Current: Yes Migraines: No Myocardial Infarction: No Renal Failure: No Schizophrenia: Yes Seizures: No Sickle Cell Disease: No Sleep Apnea: No Thyroid Disease: No Triglycerides - High: No Ulcer: No Past Surgical History Abdominal Surgery: Yes ("TUMOR REMOVED FROM LOWER STOMACH") Appendectomy: No Cardiac Surgery: No Cholecystectomy: No Ear Surgery: No Endocrine Surgery: No Eye Surgery: No Genitourinary Surgery: No Gynecologic Surgery: No Neurologic Surgery: No Oral Surgery: No Pacemaker: No Thoracic Surgery: No Other Surgery: Yes (COLONSCOPY-2013) Social History Alcohol Use: No Tobacco Use: Yes (11/26 PPD) Substance Use: No Allergies-Medications (Allergen,Severity, Reaction): Coded Allergies: Haldol (Verified Allergy, Severe, Anaphylaxis, 03/23/17) Seroquel (Verified Allergy, Severe, Anaphylaxis, 03/23/17) Reported Meds & Prescriptions Reported Meds & Active Scripts Active Bentyl (Dicyclomine HCl) 10 Mg Cap 10 Mg PO TID PRN Proventil Hfa 6.7 GM Inh (Albuterol Sulfate) 90 Mcg/Act Aer 2 Puff INH Q4-6H PRN Reported Buspirone (Buspirone HCl) 15 Mg Tab 30 Mg PO HS Zyprexa (Olanzapine) 10 Mg Tab 30 Mg PO HS Review of Systems General / Constitutional: No: Fever Eyes: No: Visual changes HENT: No: Headaches Cardiovascular: No: Chest Pain or Discomfort Respiratory: No: Shortness of Breath Gastrointestinal: No: Abdominal Pain Genitourinary: No: Dysuria Musculoskeletal: Positive: Pain Skin: No Rash Neurologic: No: Weakness Psychiatric: No: Depression Endocrine: No: Polydipsia Hematologic/Lymphatic: No: Easy Bruising Physical Exam Narrative GENERAL: Well-nourished, well-developed patient. SKIN: Focused skin assessment warm/dry. HEAD: Normocephalic. EYES: No scleral icterus. No injection or drainage. NECK: Supple, trachea midline. No JVD or lymphadenopathy. CARDIOVASCULAR: Regular rate and rhythm without murmurs, gallops, or rubs. RESPIRATORY: Breath sounds equal bilaterally. No accessory muscle use. GASTROINTESTINAL: Abdomen soft, non-tender, nondistended. MUSCULOSKELETAL: No cyanosis, or edema. BACK: Nontender without obvious deformity. No CVA tenderness. Patient has a mild to moderate tenderness diffuse over the left forearm, posterior aspect the left elbow and dorsal aspect the left wrist. Full range motion of the fingers. Limited range of motion of the elbow, the wrist. No soft tissue swelling noted. No obvious deformity noted. Sensorimotor function distally intact. Data Data Last Documented VS Vital Signs Date Time Temp Pulse Resp B/P Pulse Ox O2 Delivery O2 Flow Rate FiO2 04/05/17 06:10 97.6 88 132/82 92 04/05/17 06:05 18 Orders Forearm (2vws) (04/05/17 05:59) [facility] Medical Decision Making Medical Screen Exam Complete: Yes Emergency Medical Condition: Yes Interpretation(s) 6:34 AM. X-ray left forearm shows no acute bony injury. Differential Diagnosis Differential diagnosis including contusion, fracture, dislocation. Narrative Course 32-year-old male with left forearm injury. Status post fall. Diagnosis Primary Impression: Contusion of left forearm Qualified Code: S50.12XA - Contusion of left forearm, initial encounter Patient Instructions: General Instructions Additional Instructions: Tylenol ibuprofen for pain. Follow-up with personal physician. Return if worse. Med/Other Pt SpecificInfo: No Change to Meds Disposition: 01 DISCHARGE HOME Condition: Stable Yunior Domingo MD April 05, 2017 06:03 Yunior Domingo MD April 05, 2017 06:03
[2017-04-05 06:10] VITALS: BP 132/82; PULSE 88; TEMP 97.6; O2SAT 92
--- NOTE | 2017-04-05 06:39 | RADRPT ---
EXAM DATE/TIME: 04/05/2017 06:20 [place] COMPARISON: No previous studies available for comparison. INDICATIONS : Left arm pain. MEDICAL HISTORY : None. SURGICAL HISTORY : None. ENCOUNTER: Initial ACUITY: 1 day PAIN SCORE: Non-responsive. LOCATION: Left forearm. FINDINGS: Two view examination of the left forearm demonstrates no evidence of fracture or dislocation. Bony m ineralization is normal. The soft tissue structures are intact. CONCLUSION: Normal examination for a patient of this age. Blu Sullivan MD on April 05, 2017 at 6:37 Board Certified Radiologist. This report was verified electronically.
== END 2017-04-05 06:47 | disposition home or self-care (01) ==
LOC: NEPC 05:52
DX: S50.12XA Contusion of left forearm, initial encounter (principal); I10 Essential (primary) hypertension; F17.210 Nicotine dependence, cigarettes, uncomplicated; W06.XXXA Fall from bed, initial encounter; Y92.003 Bedroom of unspecified non-institutional (private) residence as the place of occurrence of the external cause
CPT/HCPCS: 73090; 99283

== ENCOUNTER 2017-05-28 05:41 | Emergency (ER) | payer MEDICAID ==
[~2017-05-28] VITALS: Ht 172.7 cm; Wt 76.0 kg
[2017-05-28 05:44] VITALS: BP 134/95; PULSE 104; RESP 25; TEMP 98.1; O2SAT 94
[2017-05-28 05:52] VITALS: RESP 22; O2SAT 95
[2017-05-28] MEDS ORDERED: SODIUM CHLOR 0.9% 1000 ML INJ 1,000 ML IV ONE ×2 (06:00→07:00)
[2017-05-28] MEDS ORDERED: PANTOPRAZOLE SODIUM 40 MG VIAL IV PUSH ONE (06:00)
[2017-05-28 06:20] LABS: AUTOMATED NEUTROPHIL # 9.5 TH/MM3 (1.8-7.7); BASOPHIL # 0.1 TH/MM3 (0-0.2); BASOPHIL % 0.5 % (0.0-2.0); EOSINOPHIL # 0.1 TH/MM3 (0-0.4); EOSINOPHIL % 1.1 % (0.0-4.0); HEMATOCRIT 53.5 % (39.0-51.0); HEMO FLAGS DIFF FINAL; LYMPH % 24.2 % (9.0-44.0); LYMPHOCYTE # 3.4 TH/MM3 (1.0-4.8); MEAN CELL VOLUME 93.3 FL (80.0-100.0); MEAN CORPUSCULAR HEMOGLOBIN 31.5 PG (27.0-34.0); MEAN CORPUSCULAR HGB CONC 33.8 % (32.0-36.0); MONO % 5.6 % (0.0-8.0); NEUT % 68.6 % (16.0-70.0); PLATELET COUNT 208 TH/MM3 (150-450); RED BLOOD COUNT 5.73 MIL/MM3 (4.50-5.90); RED CELL DISTRIBUTION WIDTH 15.3 % (11.6-17.2); WHITE BLOOD COUNT 13.8 TH/MM3 (4.0-11.0)
--- NOTE | 2017-05-28 06:37 | PD ---
HPI Chief Complaint: Abdominal Pain Time Seen by Provider: 05:46 Travel History International Travel<30 days: No Contact w/Intl Traveler<30days: No Traveled to known affect area: No History of Present Illness HPI The patient is a 32 year old male who presents to the [facility] emergency department with a history of abdominal pain that he reports awoke him from sound sleep at approximately 4:30 AM. The patient reports having a generalized abdominal cramping is worse in the mid lower abdomen. He reports that it seems to move around. He reports that he last moved his bowels within the last 24 hours. He reports that he's had chronic soft stools one time per day. He reports that the stool is light brown in color. He denies having any blood in his stool or black or tarry stools. He denies having any mucus in his stool. The patient reports that he has had intermittent pain like this and loose stools daily since he was diagnosed with colon cancer at [facility] in 2013. The patient reports that he has been taking Dicyclomine as needed for discomfort, however it did not help prior to arrival. The patient was brought in by ambulance services. The patient's blood sugar was noted to be 134 according to ambulance services prior to arrival. On review of systems, the patient denies any recent fevers, cough, congestion, neck pain, chest pain, shortness of breath , vomiting, urinary symptoms, or neurologic symptoms. [facility] Past Medical History Narrative Medical The patient's past medical history is significant for psychiatric disorder, reported history of colon cancer, however after reviewing the electronic medical record in 2013 the patient underwent endoscopy and colonoscopy. The patient was noted to have hyperplastic colon polyp on pathology and gastritis. There is no record of the patient being diagnosed with colon cancer. 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 ) Diabetes: No Diminished Hearing: No Endocrine: No Gastrointestinal Disorders: No GERD: Yes Genitourinary: No Headaches: No Hepatitis: No Hiatal Hernia: No Heparin Induced Thrombocytopen: No Hypertension: Yes Immune Disorder: No Implanted Vascular Access Dvce: No Kidney Stones: No Musculoskeletal: No Neurologic: No Psychiatric: Yes (PTSD) Reproductive: No Immunizations Current: Yes Migraines: No Myocardial Infarction: No Renal Failure: No Schizophrenia: Yes Seizures: No Sickle Cell Disease: No Sleep Apnea: No Thyroid Disease: No Triglycerides - High: No Ulcer: No Tetanus Vaccination: < 5 Years Influenza Vaccination: Yes Past Surgical History Narrative Surgical The patient's past surgical history is significant for endoscopy and colonoscopy with polyp removal. Abdominal Surgery: Yes ("TUMOR REMOVED FROM LOWER STOMACH") Appendectomy: No Cardiac Surgery: No Cholecystectomy: No Ear Surgery: No Endocrine Surgery: No Eye Surgery: No Genitourinary Surgery: No Gynecologic Surgery: No Neurologic Surgery: No Oral Surgery: No Pacemaker: No Thoracic Surgery: No Other Surgery: Yes (COLONSCOPY-2013 "TUMOR REMOVED FROM LOWER STOMACH") Social History Alcohol Use: No Tobacco Use: Yes (11/26 PPD) Substance Use: No Allergies-Medications (Allergen,Severity, Reaction): Coded Allergies: Haldol (Verified Allergy, Severe, Anaphylaxis, 05/28/17) Seroquel (Verified Allergy, Severe, Anaphylaxis, 05/28/17) Reported Meds & Prescriptions Reported Meds & Active Scripts Active Bentyl (Dicyclomine HCl) 10 Mg Cap 10 Mg PO TID PRN Proventil Hfa 6.7 GM Inh (Albuterol Sulfate) 90 Mcg/Act Aer 2 Puff INH Q4-6H PRN Reported Buspirone (Buspirone HCl) 15 Mg Tab 30 Mg PO HS Review of Systems Except as stated in HPI: all other systems reviewed are Neg General / Constitutional: No: Fever Eyes: No: Visual changes HENT: No: Headaches Cardiovascular: No: Chest Pain or Discomfort Respiratory: No: Shortness of Breath Gastrointestinal: Positive: Diarrhea, Abdominal Pain, Indigestion, No: Nausea , Vomiting, Hematemesis, Hematochezia, Constipation, Changes in Bowel Habits, Loss of Appetite Genitourinary: No: Dysuria Musculoskeletal: No: Pain Skin: No Rash Neurologic: No: Weakness Psychiatric: No: Depression Endocrine: No: Polydipsia Hematologic/Lymphatic: No: Easy Bruising Physical Exam Narrative General: The patient is a well-developed well-nourished male in no acute distress. Head and Neck exam: Head is normocephalic atraumatic. Eyes: EOMI, pupils are equal round and reactive to light. Nose: Midline septum with pink mucous membranes Mouth: Dentition unremarkable. Moist mucus membranes. Posterior oropharynx is not erythematous. No tonsillar hypertrophy. Uvula midline. Airway patent. Neck: No palpable lymphadenopathy. No nuchal rigidity. No thyromegaly. Cardiovascular: Regular rate and rhythm without murmurs, gallops, or rubs. Lungs: Clear to auscultation bilaterally. No wheezes, rhonchi, or rales. Abdomen: Soft, with reported tenderness on palpation along the suprapubic area and left lower quadrant of the abdomen. No other point tenderness on palpation of the other quadrants of the abdomen. No guarding, rebound, or rigidity. Normal bowel sounds are audible. No tenderness on palpation of McBurney's point. Negative [place] sign. Extremities: No clubbing, cyanosis, or edema. 2+ pulses in all 4 extremities. No calf tenderness on palpation. Back: No costovertebral angle tenderness to palpation. Neurologic Exam: Grossly nonfocal. Skin Exam: No rash noted. Intact skin that is warm and dry. Data Data Last Documented VS Vital Signs Date Time Temp Pulse Resp B/P Pulse Ox O2 Delivery O2 Flow Rate FiO2 05/28/17 05:52 22 95 Room Air 05/28/17 05:44 98.1 104 134/95 Orders Complete Blood Count With Diff (05/28/17 05:46) Comprehensive Metabolic Panel (05/28/17 05:46) Lipase (05/28/17 05:46) Urinalysis - C+S If Indicated (05/28/17 05:46) Magnesium (Mg) (05/28/17 05:46) Chest, Single Ap (05/28/17 05:46) Iv Access Insert/Monitor (05/28/17 05:46) Ecg Monitoring (05/28/17 05:46) Oximetry (05/28/17 05:46) Sodium Chlor 0.9% 1000 Ml Inj (Ns 1000 M (05/28/17 06:00) Pantoprazole Inj (Protonix Inj) (05/28/17 06:00) Ct Abd/Pel W Iv Contrast(Rout) (05/28/17 06:37) Labs Laboratory Tests Test 05/28/17 05:53 White Blood Count 13.8 TH/MM3 Red Blood Count 5.73 MIL/MM3 Hemoglobin 18.1 GM/DL Hematocrit 53.5 % Mean Corpuscular Volume 93.3 FL Mean Corpuscular Hemoglobin 31.5 PG Mean Corpuscular Hemoglobin 33.8 % Concent Red Cell Distribution Width 15.3 % Platelet Count 208 TH/MM3 Mean Platelet Volume 8.0 FL Neutrophils (%) (Auto) 68.6 % Lymphocytes (%) (Auto) 24.2 % Monocytes (%) (Auto) 5.6 % Eosinophils (%) (Auto) 1.1 % Basophils (%) (Auto) 0.5 % Neutrophils # (Auto) 9.5 TH/MM3 Lymphocytes # (Auto) 3.4 TH/MM3 Monocytes # (Auto) 0.8 TH/MM3 Eosinophils # (Auto) 0.1 TH/MM3 Basophils # (Auto) 0.1 TH/MM3 CBC Comment DIFF FINAL Differential Comment Alanine Aminotransferase 38 U/L (ALT/SGPT) MDM Medical Decision Making Medical Screen Exam Complete: Yes Emergency Medical Condition: Yes Medical Record Reviewed: Yes Differential Diagnosis Colonic spasms, versus colitis, versus gastritis, versus esophagitis, versus pancreatitis, versus somatization Narrative Course During the course of the patients emergency department visit, the patients history, examination, and differential diagnosis were reviewed with the patient. The patient had IV access obtained and blood work sent for analysis. 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 The patient was initially provided normal saline 1 L IV fluid bolus, Protonix 40 mg IV. After reviewing the patient's electronic medical record I did have a discussion with him regarding his findings on colonoscopy. I explained that a hyperplastic polyp is not cancer. I did explain that he does have a history of gastric inflammation. He denies taking any acid reducers at this time. The patients laboratory studies were reviewed and remarkable for a white count of 13.8, hemoglobin 18.1, platelets 208, ALT is 38, the rest of the CMP and urinalysis is pending. A CT scan of the abdomen and pelvis has been ordered to further evaluate the patient's abdominal pain as the patient does have a leukocytosis noted. The patient's case will be checked out to the oncoming emergency physician to disposition based on the conclusion of his workup. Diagnosis Primary Impression: Abdominal pain Qualified Code: R10.84 - Generalized abdominal pain Additional Impression: Leukocytosis, unspecified Sil Jones MD May 28, 2017 06:37
--- NOTE | 2017-05-28 06:37 | RADRPT ---
EXAM DATE/TIME: 05/28/2017 06:08 [facility] COMPARISON: CHEST SINGLE AP, July 30, 2016, 5:25. INDICATIONS : Chest and abdominal pain. MEDICAL HISTORY : None. SURGICAL HISTORY : None. ENCOUNTER: Initial ACUITY: 1 day PAIN SCORE: 7/10 LOCATION: Bilateral upper chest FINDINGS: A single view of the chest demonstrates the lungs to be symmetrically aerated without evidence of mas s, infiltrate or effusion. The cardiomediastinal contours are unremarkable. Osseous structures are intact. CONCLUSION: No acute disease. Duncan Armenta MD on May 28, 2017 at 6:34 Board Certified Radiologist. This report was verified electronically.
[2017-05-28 06:46] LABS: ALT (GPT) 38 U/L (12-78)
[2017-05-28 06:48] LABS: ALKALINE PHOSPHATASE 78 U/L (45-117); TOTAL BILIRUBIN ADULT 0.3 MG/DL (0.2-1.0)
[2017-05-28 06:57] LABS: BLOOD, URINE NEG (NEG); COMMENT (UR) CULT NOT INDICATED; CULTURE IF INDICATED CULT NOT INDICATED; GLUCOSE,URINE NEG (NEG); HYALINE CAST, URINE 1 /lpf (RARE); KETONE, URINE NEG (NEG); MUCUS URINE FEW /lpf (OCC); NITRITE,URINE NEG (NEG); PH, URINE 5.5 (5.0-8.5); URINE COLOR LIGHT-YELLOW (YELLW/STRAW)
[2017-05-28 07:09] LABS: ANION GAP 10 MEQ/L (5-15); AST (GOT) 26 U/L (15-37); BICARBONATE 23.7 MEQ/L (21.0-32.0); BLOOD UREA NITROGEN 12 MG/DL (7-18); CHLORIDE 106 MEQ/L (98-107); GLOMERULAR FILTRATION RATE 90 ML/MIN (>89); SODIUM (NA) 140 MEQ/L (136-145)
[2017-05-28 07:24] VITALS: BP 127/91; PULSE 77; RESP 21; TEMP 97.6; O2SAT 97
[2017-05-28] MEDS ORDERED: IOHEXOL 350 MG/ML 10 ML VIAL (for RAD DIAG) IV ONE (08:09)
--- NOTE | 2017-05-28 08:24 | RADRPT ---
EXAM DATE/TIME: 05/28/2017 08:03 [facility] COMPARISON: CT ABDOMEN & PELVIS W CONTRAST, June 25, 2015, 5:40. INDICATIONS : Diffuse abdomen pain for 1 day, diarrhea IV CONTRAST: 100 cc Omnipaque 350 (iohexol) IV ORAL CONTRAST: No oral contrast ingested. RADIATION DOSE: 10.51 CTDIvol (mGy) MEDICAL HISTORY : Hypertension. Gastroesophageal reflux disease. Carcinoma, colon. SURGICAL HISTORY : None. ENCOUNTER: Initial ACUITY: 1 day PAIN SCALE: 5/10 LOCATION: diffuse abdomen TECHNIQUE: Volumetric scanning of the abdomen and pelvis was performed. Using automated exposure control and ad justment of the mA and/or kV according to patient size, radiation dose was kept as low as reasonably achievable to obtain optimal diagnostic quality images. DICOM format image data is available electro nically for review and comparison. FINDINGS: LOWER LUNGS: The visualized lower lungs are clear. LIVER: Homogeneous density without lesion. There is no dilation of the biliary tree. No calcified gallston es. SPLEEN: Normal size without lesion. PANCREAS: Within normal limits. KIDNEYS: Normal in size and shape. There is no mass, stone or hydronephrosis. ADRENAL GLANDS: Within normal limits. VASCULAR: There is no aortic aneurysm. BOWEL/MESENTERY: The stomach, small bowel, and colon demonstrate no acute abnormality. There is no free intraperitone al air or fluid. ABDOMINAL WALL: Within normal limits. RETROPERITONEUM: There is no lymphadenopathy. BLADDER: No wall thickening or mass. REPRODUCTIVE: Within normal limits. INGUINAL: There is no lymphadenopathy or hernia. MUSCULOSKELETAL: Within normal limits for patient age. CONCLUSION: Normal examination. Celio Myers MD on May 28, 2017 at 8:18 Board Certified Radiologist. This report was verified electronically.
--- NOTE | 2017-05-28 08:41 | PD ---
Physical Exam Date Seen by Provider: May 28, 2017 Narrative GENERAL: SKIN: Warm and dry. HEAD: Atraumatic. Normocephalic. EYES: Pupils equal and round. No scleral icterus. No injection or drainage. ENT: No nasal bleeding or discharge. Mucous membranes pink and moist. NECK: Trachea midline. No JVD. CARDIOVASCULAR: Regular rate and rhythm. RESPIRATORY: No accessory muscle use. Clear to auscultation. Breath sounds equal bilaterally. GASTROINTESTINAL: Abdomen soft, non-tender, nondistended. no rebound/guarding/ rigidity MUSCULOSKELETAL: Extremities without clubbing, cyanosis, or edema. No obvious deformities. NEUROLOGICAL: Awake and alert. No obvious cranial nerve deficits. Motor grossly within normal limits. Five out of 5 muscle strength in the arms and legs. Normal speech. PSYCHIATRIC: Appropriate mood and affect; insight and judgment normal. Data Data Last Documented VS Vital Signs Date Time Temp Pulse Resp B/P Pulse Ox O2 Delivery O2 Flow Rate FiO2 05/28/17 07:24 97.6 77 21 127/91 97 Room Air Orders Complete Blood Count With Diff (05/28/17 05:46) Comprehensive Metabolic Panel (05/28/17 05:46) Lipase (05/28/17 05:46) Urinalysis - C+S If Indicated (05/28/17 05:46) Magnesium (Mg) (05/28/17 05:46) Chest, Single Ap (05/28/17 05:46) Iv Access Insert/Monitor (05/28/17 05:46) Ecg Monitoring (05/28/17 05:46) Oximetry (05/28/17 05:46) Sodium Chlor 0.9% 1000 Ml Inj (Ns 1000 M (05/28/17 06:00) Pantoprazole Inj (Protonix Inj) (05/28/17 06:00) Ct Abd/Pel W Iv Contrast(Rout) (05/28/17 06:37) Sodium Chlor 0.9% 1000 Ml Inj (Ns 1000 M (05/28/17 07:00) Iohexol 350 Inj (Omnipaque 350 Inj) (05/28/17 08:09) Labs Laboratory Tests Test 05/28/17 05/28/17 05:53 06:27 White Blood Count 13.8 TH/MM3 Red Blood Count 5.73 MIL/MM3 Hemoglobin 18.1 GM/DL Hematocrit 53.5 % Mean Corpuscular Volume 93.3 FL Mean Corpuscular Hemoglobin 31.5 PG Mean Corpuscular Hemoglobin 33.8 % Concent Red Cell Distribution Width 15.3 % Platelet Count 208 TH/MM3 Mean Platelet Volume 8.0 FL Neutrophils (%) (Auto) 68.6 % Lymphocytes (%) (Auto) 24.2 % Monocytes (%) (Auto) 5.6 % Eosinophils (%) (Auto) 1.1 % Basophils (%) (Auto) 0.5 % Neutrophils # (Auto) 9.5 TH/MM3 Lymphocytes # (Auto) 3.4 TH/MM3 Monocytes # (Auto) 0.8 TH/MM3 Eosinophils # (Auto) 0.1 TH/MM3 Basophils # (Auto) 0.1 TH/MM3 CBC Comment DIFF FINAL Differential Comment Sodium Level 140 MEQ/L Potassium Level 4.0 MEQ/L Chloride Level 106 MEQ/L Carbon Dioxide Level 23.7 MEQ/L Anion Gap 10 MEQ/L Blood Urea Nitrogen 12 MG/DL Creatinine 0.96 MG/DL Estimat Glomerular Filtration 90 ML/MIN Rate Random Glucose 103 MG/DL Calcium Level 8.5 MG/DL Magnesium Level 2.0 MG/DL Total Bilirubin 0.3 MG/DL Aspartate Amino Transf 26 U/L (AST/SGOT) Alanine Aminotransferase 38 U/L (ALT/SGPT) Alkaline Phosphatase 78 U/L Total Protein 7.0 GM/DL Albumin 3.7 GM/DL Lipase 60 U/L Urine Color LIGHT-YELLOW Urine Turbidity CLEAR Urine pH 5.5 Urine Specific [place] 1.004 Urine Protein NEG mg/dL Urine Glucose (UA) NEG mg/dL Urine Ketones NEG mg/dL Urine Occult Blood NEG Urine Nitrite NEG Urine Bilirubin NEG Urine Urobilinogen LESS THAN 2.0 MG/DL Urine Leukocyte Esterase NEG Urine RBC LESS THAN 1 /hpf Urine WBC LESS THAN 1 /hpf Urine Hyaline Casts 1 /lpf Urine Mucus FEW /lpf Microscopic Urinalysis Comment CULT NOT INDICATED MDM Medical Record Reviewed: Yes Supervised Visit with CRISTO: No Narrative Course received pt from dr mosley, awaiting ct abd/pelvis....at 0845 reading back with radiology impression "negative examination". patient will be d/c Diagnosis Primary Impression: Abdominal pain Qualified Code: R10.84 - Generalized abdominal pain Additional Impression: Leukocytosis, unspecified Tim Aguilar MD May 28, 2017 08:41
== END 2017-05-28 09:59 | disposition home or self-care (01) ==
LOC: NEPC 05:41
DX: R10.84 Generalized abdominal pain (principal); D72.829 Elevated white blood cell count, unspecified; F20.9 Schizophrenia, unspecified; I10 Essential (primary) hypertension; F17.210 Nicotine dependence, cigarettes, uncomplicated; F43.10 Post-traumatic stress disorder, unspecified
CPT/HCPCS: 71010; 74177; 80053; 81001; 83690; 83735; 85025; 96361; 96374; 99285; C9113; J7030; Q9967

== ENCOUNTER 2017-07-08 06:16 | Emergency (ER) | payer MEDICAID ==
[~2017-07-08] VITALS: Ht 172.7 cm; Wt 90.0 kg
[~2017-07-08 06:16] MED LIST changes: -ZYPR10TA PO
[2017-07-08] MEDS ORDERED: SODIUM CHLOR 0.9% 1000 ML INJ 1,000 ML IV SCH (06:19)
[2017-07-08 06:20] VITALS: BP 126/74; PULSE 86; RESP 20; TEMP 98.1; O2SAT 100
[2017-07-08] MEDS ORDERED: CETI10 PO (06:26)
[2017-07-08] MEDS ORDERED: MACR100C3 PO (06:26)
[2017-07-08] MEDS ORDERED: PANT20TA2 PO (06:26)
[2017-07-08] MEDS ORDERED: ONDANSETRON HCL 4 MG/2 ML VIAL IVP ONE (06:30)
[2017-07-08] MEDS ORDERED: SODIUM CHLORIDE 0.9% FLUSH 10 ML FLUSH IV FLUSH PRN (06:30)
[2017-07-08] MEDS ORDERED: KETOROLAC TROMETHAMINE 30 MG/ML (IVP) VIAL IVP ONE (06:30)
[2017-07-08 06:46] LABS: AUTOMATED NEUTROPHIL # 8.7 TH/MM3 (1.8-7.7); BASOPHIL # 0.1 TH/MM3 (0-0.2); BASOPHIL % 0.6 % (0.0-2.0); EOSINOPHIL # 0.5 TH/MM3 (0-0.4); EOSINOPHIL % 3.4 % (0.0-4.0); HEMATOCRIT 51.7 % (39.0-51.0); HEMO FLAGS DIFF FINAL; LYMPH % 27.2 % (9.0-44.0); LYMPHOCYTE # 3.7 TH/MM3 (1.0-4.8); MEAN CELL VOLUME 94.4 FL (80.0-100.0); MEAN CORPUSCULAR HEMOGLOBIN 31.2 PG (27.0-34.0); MEAN CORPUSCULAR HGB CONC 33.1 % (32.0-36.0); MONO % 5.5 % (0.0-8.0); NEUT % 63.3 % (16.0-70.0); PLATELET COUNT 228 TH/MM3 (150-450); RED BLOOD COUNT 5.48 MIL/MM3 (4.50-5.90); RED CELL DISTRIBUTION WIDTH 14.6 % (11.6-17.2); WHITE BLOOD COUNT 13.7 TH/MM3 (4.0-11.0)
--- NOTE | 2017-07-08 06:47 | PD ---
HPI Chief Complaint: Abdominal Pain Time Seen by Provider: 06:19 Travel History International Travel<30 days: No Contact w/Intl Traveler<30days: No Traveled to known affect area: No History of Present Illness HPI Patient is a 32-year-old male with a history of bipolar disorder presents emergency department for evaluation of lower quadrant and periumbilical abdominal cramping. Patient states this started shortly after he had an [employer] product this morning. States she's never had one of those before. Denies any nausea or vomiting denies any diarrhea constipation. Patient states he had a mass in his right lower abdomen which was removed remotely. Review of his chart shows that it was actually: Cancer and he did not require any chemotherapy or radiation. Denies any fevers. 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 ) Diabetes: No Diminished Hearing: No Endocrine: No Gastrointestinal Disorders: No GERD: Yes Genitourinary: No Headaches: No Hepatitis: No Hiatal Hernia: No Heparin Induced Thrombocytopen: No Hypertension: Yes Immune Disorder: No Implanted Vascular Access Dvce: No Kidney Stones: No Musculoskeletal: No Neurologic: No Psychiatric: Yes (PTSD) Reproductive: No Immunizations Current: Yes Migraines: No Myocardial Infarction: No Renal Failure: No Schizophrenia: Yes Seizures: No Sickle Cell Disease: No Sleep Apnea: No Thyroid Disease: No Triglycerides - High: No Ulcer: No Influenza Vaccination: Yes Past Surgical History Abdominal Surgery: Yes ("TUMOR REMOVED FROM LOWER STOMACH") Appendectomy: No Cardiac Surgery: No Cholecystectomy: No Ear Surgery: No Endocrine Surgery: No Eye Surgery: No Genitourinary Surgery: No Gynecologic Surgery: No Neurologic Surgery: No Oral Surgery: No Pacemaker: No Thoracic Surgery: No Other Surgery: Yes (COLONSCOPY-2013 "TUMOR REMOVED FROM LOWER STOMACH") Social History Alcohol Use: No Tobacco Use: Yes (11/26 PPD) Substance Use: No Allergies-Medications (Allergen,Severity, Reaction): Coded Allergies: Haldol (Verified Allergy, Severe, Anaphylaxis, 07/08/17) Seroquel (Verified Allergy, Severe, Anaphylaxis, 07/08/17) Reported Meds & Prescriptions Reported Meds & Active Scripts Active Proventil Hfa 6.7 GM Inh (Albuterol Sulfate) 90 Mcg/Act Aer 2 Puff INH Q4-6H PRN Reported Cetirizine (Cetirizine HCl) 10 Mg Tab 10 Mg PO DAILY Macrodantin (Nitrofurantoin Macrocrystal) 100 Mg Cap 100 Mg PO BID Pantoprazole (Pantoprazole Sodium) 20 Mg Tab 20 Mg PO DAILY Buspirone (Buspirone HCl) 15 Mg Tab 30 Mg PO HS Review of Systems Except as stated in HPI: all other systems reviewed are Neg Physical Exam Narrative GENERAL: Well-developed well-nourished, no obvious distress. SKIN: Flushed sunburned face. Patient states he was working out side. HEAD: Atraumatic. Normocephalic. EYES: Pupils equal and round. No scleral icterus. No injection or drainage. ENT: No nasal bleeding or discharge. Mucous membranes pink and moist. NECK: Trachea midline. No JVD. CARDIOVASCULAR: Regular rate and rhythm. No murmur appreciated. RESPIRATORY: No accessory muscle use. Clear to auscultation. Breath sounds equal bilaterally. GASTROINTESTINAL: Abdomen soft, non-tender, nondistended. Hepatic and splenic margins not palpable. No rebound or percussive tenderness. MUSCULOSKELETAL: No obvious deformities. No clubbing. No cyanosis. No edema. NEUROLOGICAL: Awake and alert. No obvious cranial nerve deficits. Motor grossly within normal limits. Normal speech. PSYCHIATRIC: Appropriate mood and affect; insight and judgment normal. Data Data Last Documented VS Vital Signs Date Time Temp Pulse Resp B/P Pulse Ox O2 Delivery O2 Flow Rate FiO2 07/08/17 06:20 98.1 86 20 126/74 100 Orders Complete Blood Count With Diff (07/08/17 06:19) Comprehensive Metabolic Panel (07/08/17 06:19) Lipase (07/08/17 06:19) Iv Access Insert/Monitor (07/08/17 06:19) Ecg Monitoring (07/08/17 06:19) Oximetry (07/08/17 06:19) Ondansetron Inj (Zofran Inj) (07/08/17 06:30) Sodium Chlor 0.9% 1000 Ml Inj (Ns 1000 M (07/08/17 06:19) Sodium Chloride 0.9% Flush (Ns Flush) (07/08/17 06:30) Ketorolac Inj (Toradol Inj) (07/08/17 06:30) MDM Medical Decision Making Medical Screen Exam Complete: Yes Emergency Medical Condition: Yes Differential Diagnosis Gastritis, gastritis, abdominal pain, abdominal cramping from caffeinated beverage. Narrative Course Patient roomed emerged permit, given Toradol Zofran and fluids, basic labs are ordered. Patient will be discussed with Dr. Negron my relief at 0700 follow- up labs and disposition the patient properly. Bj Geogre MD Jul 08, 2017 06:47
[2017-07-08 07:16] LABS: ALT (GPT) 33 U/L (12-78)
[2017-07-08 07:18] LABS: ALKALINE PHOSPHATASE 79 U/L (45-117); TOTAL BILIRUBIN ADULT 0.4 MG/DL (0.2-1.0)
[2017-07-08 07:19] VITALS: BP 110/61; PULSE 80; RESP 16; O2SAT 95
[2017-07-08 07:19] LABS: ANION GAP 6 MEQ/L (5-15); AST (GOT) 17 U/L (15-37); BICARBONATE 26.7 MEQ/L (21.0-32.0); BLOOD UREA NITROGEN 19 MG/DL (7-18); CHLORIDE 105 MEQ/L (98-107); GLOMERULAR FILTRATION RATE 94 ML/MIN (>89); POTASSIUM 3.6 MEQ/L (3.5-5.1); SODIUM (NA) 138 MEQ/L (136-145)
--- NOTE | 2017-07-08 07:44 | PD ---
Physical Exam Date Seen by Provider: Jul 08, 2017 Time Seen by Provider: 07:43 Narrative 32-year-old male came to the emergency room with history of abdominal cramps and diarrhea. He was seen by the previous ER physician. Vital signs were stable upon arrival. Please refer to his history and physical for specifics details. Case was signed out to me to follow-up on the blood test results. As per the previous ER physician's physical exam finding and clinical impression the chance of acute abdomen was low. No imaging studies were ordered. Blood test results are back and patient has some leukocytosis. However upon looking back at his previous visits, patient has been in [place] emergency room multiple times for abdominal pain. His last visit was on May 28 for abdominal pain and his WBC was in the same range. He had a CAT scan done on that day which was within normal limits. Patient will be discharged home. He was asking for a prescription for some pain medication which at this point I do not see any indication for any opiates. I have asked them to follow up with his primary care which she does have one. Data Data Last Documented VS Vital Signs Date Time Temp Pulse Resp B/P Pulse Ox O2 Delivery O2 Flow Rate FiO2 07/08/17 08:00 16 07/08/17 07:19 80 110/61 95 Room Air 07/08/17 06:20 98.1 Orders Complete Blood Count With Diff (07/08/17 06:19) Comprehensive Metabolic Panel (07/08/17 06:19) Lipase (07/08/17 06:19) Iv Access Insert/Monitor (07/08/17 06:19) Ecg Monitoring (07/08/17 06:19) Oximetry (07/08/17 06:19) Ondansetron Inj (Zofran Inj) (07/08/17 06:30) Sodium Chlor 0.9% 1000 Ml Inj (Ns 1000 M (07/08/17 06:19) Sodium Chloride 0.9% Flush (Ns Flush) (07/08/17 06:30) Ketorolac Inj (Toradol Inj) (07/08/17 06:30) Labs Laboratory Tests Test 07/08/17 05:22 White Blood Count 13.7 TH/MM3 Red Blood Count 5.48 MIL/MM3 Hemoglobin 17.1 GM/DL Hematocrit 51.7 % Mean Corpuscular Volume 94.4 FL Mean Corpuscular Hemoglobin 31.2 PG Mean Corpuscular Hemoglobin 33.1 % Concent Red Cell Distribution Width 14.6 % Platelet Count 228 TH/MM3 Mean Platelet Volume 7.8 FL Neutrophils (%) (Auto) 63.3 % Lymphocytes (%) (Auto) 27.2 % Monocytes (%) (Auto) 5.5 % Eosinophils (%) (Auto) 3.4 % Basophils (%) (Auto) 0.6 % Neutrophils # (Auto) 8.7 TH/MM3 Lymphocytes # (Auto) 3.7 TH/MM3 Monocytes # (Auto) 0.8 TH/MM3 Eosinophils # (Auto) 0.5 TH/MM3 Basophils # (Auto) 0.1 TH/MM3 CBC Comment DIFF FINAL Differential Comment Sodium Level 138 MEQ/L Potassium Level 3.6 MEQ/L Chloride Level 105 MEQ/L Carbon Dioxide Level 26.7 MEQ/L Anion Gap 6 MEQ/L Blood Urea Nitrogen 19 MG/DL Creatinine 0.93 MG/DL Estimat Glomerular Filtration 94 ML/MIN Rate Random Glucose 130 MG/DL Calcium Level 8.4 MG/DL Total Bilirubin 0.4 MG/DL Aspartate Amino Transf 17 U/L (AST/SGOT) Alanine Aminotransferase 33 U/L (ALT/SGPT) Alkaline Phosphatase 79 U/L Total Protein 6.8 GM/DL Albumin 3.6 GM/DL Lipase 78 U/L MDM Supervised Visit with CRISTO: No Diagnosis Primary Impression: Chronic abdominal pain Referrals: Primary Care Physician 2 days Additional Instruction: Please return to the ER if the condition worsens or any other new concerns. Otherwise follow-up with your primary care next couple days. Take clear liquid diet for the next 24-48 hours. Med/Other Pt SpecificInfo: No Change to Meds Disposition: 01 DISCHARGE HOME Condition: Stable Janet Negron MD Jul 08, 2017 07:44
[2017-07-08 08:00] VITALS: RESP 16
[2017-07-30] MEDS ORDERED: ALBU6.7H INH (10:30)
== END 2017-07-08 08:13 | disposition home or self-care (01) ==
LOC: NEPC 06:16
DX: R10.33 Periumbilical pain (principal); R10.30 Lower abdominal pain, unspecified; G89.29 Other chronic pain; D72.829 Elevated white blood cell count, unspecified; I10 Essential (primary) hypertension; F17.200 Nicotine dependence, unspecified, uncomplicated; Z86.59 Personal history of other mental and behavioral disorders; Z87.09 Personal history of other diseases of the respiratory system; Z85.038 Personal history of other malignant neoplasm of large intestine; Z87.820 Personal history of traumatic brain injury; Z87.19 Personal history of other diseases of the digestive system
CPT/HCPCS: 80053; 83690; 85025; 96361; 96374; 96375; 99284; J1885; J2405; J7030